=== PATIENT | female | born 1960 | race Caucasian/White ===

== ENCOUNTER → 2018-03-04 | Outpatient (CLI) | payer BC ==
[~2018-03-04] MED LIST: MULTIPLE VITAMI1 CAP PO; PREDNISONE20 MG PO; TRIAMCINOLONE A15 GM TP; TUMS EXTRA STR750 MG PO
== END ==
LOC: MC.RAD 01-18 14:40
DX: Z12.31 Encounter for screening mammogram for malignant neoplasm of breast (principal); Z13.220 Encounter for screening for lipoid disorders; N95.1 Menopausal and female climacteric states

== ENCOUNTER → 2019-05-05 | Outpatient (CLI) | payer BC | LOC: MC.RAD 16:00 | DX: Z12.31 Encounter for screening mammogram for malignant neoplasm of breast (principal) ==

== ENCOUNTER → 2020-12-20 | Outpatient (CLI) | payer BC | LOC: MC.RAD 11:30 | DX: Z12.31 Encounter for screening mammogram for malignant neoplasm of breast (principal) ==